=== PATIENT | female | born 1985 | race Caucasian/White ===

== ENCOUNTER 2019-06-08 14:07 | Emergency (ER) | payer BC ==
[2019-06-08 14:33] VITALS: BP 124/61
--- NOTE | 2019-06-08 15:02 | UC ---
Skin Complaint HPI - HPI Summary HPI Summary: 33-year-old woman comes in with a chief complaint of a rash on the right side of her chest and right breast. About 2 weeks ago she knows what she thought was an insect bite. She did express some pus from it at that time since that time it's gotten red and the redness is spread. No fevers or chills feels well otherwise. Patient is 26 weeks . She is wondering if it's Lyme disease. Did not see a tick. - History of Current Complaint Chief Complaint: UCSkin Time Seen by Provider: 06/08/19 14:30 Stated Complaint: TICK BITE Pain Intensity: 2 - Allergy/Home Medications Allergies/Adverse Reactions: Allergies Allergy/AdvReac Type Severity Reaction Status Date / Time No Known Allergies Allergy Verified 06/08/19 14:29 Home Medications: Home Medications Folic Acid TAB* [Folvite TAB*] 1 mg PO DAILY 06/08/19 [History Confirmed ] Vitamin TAB* 1 tab PO DAILY 06/08/19 [History Confirmed 06/08/19] PMH/Surg Hx/FS Hx/Imm Hx Previously Healthy: Yes - Surgical History Surgical History: None - Family History Known Family History: Positive: Non-Contributory - Social History Alcohol Use: None Substance Use Type: None Smoking Status (MU): Never Smoked Tobacco Review of Systems All Other Systems Reviewed And Are Negative: Yes Constitutional: Positive: Negative Skin: Positive: Other - SEE HPI Eyes: Positive: Negative ENT: Positive: Negative Respiratory: Positive: Negative Cardiovascular: Positive: Negative Gastrointestinal: Positive: Negative Motor: Positive: Negative Neurovascular: Positive: Negative Musculoskeletal: Positive: Negative Neurological: Positive: Negative Psychological: Positive: Negative Is Patient Immunocompromised?: No Physical Exam Triage Information Reviewed: Yes Appearance: Well-Appearing, No Pain Distress, Well-Nourished Vital Signs: Initial Vital Signs Temp 98.9 F 06/08/19 14:24 Pulse 92 06/08/19 14:24 Resp 16 06/08/19 14:24 BP 124/61 06/08/19 14:24 Pulse Ox 100 06/08/19 14:24 Vital Signs Reviewed: Yes Eye Exam: Normal Eyes: Positive: Conjunctiva Clear Neck: Positive: Supple Respiratory: Positive: No respiratory distress Abdomen Description: Positive: Other: - GRAVID Musculoskeletal Exam: Normal Musculoskeletal: Positive: Strength Intact, ROM Intact Neurological Exam: Normal Neurological: Positive: Alert, Muscle Tone Normal Psychological Exam: Normal Psychological: Positive: Normal Response To Family, Age Appropriate Behavior Skin: Positive: Other - On the right chest wall and the lateral aspect of the right breast there is a flat erythematous rash that is blanching 20 cm x 10 cm. There is no drainage no fluctuance. No central clearing. Course/Dx - Course Course Of Treatment: Patient is a cellulitis on her right chest wall. No tick was seen there is no central clearing. I'm prescribing antibiotic for the cellulitis. Because the patient and her family are worried about the possibility of Lyme disease I'm treating with cefuroxime as it treats erythema migrans and cellulitis and is safe in . Patient she get reevaluated if she is worse or any other questions or concerns. - Diagnoses Provider Diagnosis: Cellulitis of chest wall Discharge - Sign-Out/Discharge Documenting (check all that apply): Patient Departure All imaging exams completed and their final reports reviewed: No Studies - Discharge Plan Condition: Stable Disposition: HOME Prescriptions: Cefuroxime 500 MG(NF) 500 mg PO BID #28 tab Patient Education Materials: Cellulitis (ED) Referrals: [facility] [place] [facility] [Outside] Additional Instructions: FOLLOW UP WITH YOUR DOCTOR IF NOT COMPLETELY IMPROVED. GET REEVALUATED SOONER IF WORSE; FEVER, SPREAD OF INFECTION, YOU FEEL ILL OR ANY QUESTIONS OR CONCERNS. - Billing Disposition and Condition Condition: STABLE Disposition: Home
== END 2019-06-08 15:08 | disposition home or self-care (01) ==
LOC: UCCORT 14:07
DX: L03.313 Cellulitis of chest wall (principal); O26.892 Other specified pregnancy related conditions, second trimester; Z3A.26 26 weeks gestation of pregnancy
CPT/HCPCS: 99212; G0463